=== PATIENT | female | born 1990 | race Caucasian/White ===

== ENCOUNTER 2016-08-13 11:25 | Emergency (ER) | payer OTHER ==
[2016-08-13] MEDS ORDERED: BUFFERED LIDOCAINE 10 ML SYRINGE ONE (12:50)
[2016-08-13] MEDS ORDERED: HYDROcod/ACETAM 5/325 MG TABLET PO STA (13:05)
[2016-08-13] MEDS ORDERED: HYDROcod/ACETAM 5/325 MG TABLET ONE (13:06)
== END 2016-08-13 13:18 | disposition home or self-care (01) ==
DX: L02.01 Cutaneous abscess of face (principal)
CPT/HCPCS: 10060; 87070; 87077; 87181; 87205; 99283; A9270

== ENCOUNTER 2018-09-24 08:00 | Outpatient (CLI) | payer OTHER | END 2018-09-24 23:59 | disposition home or self-care (01) | LOC: LAB.R 08:00 | PROVIDERS: ATTEND Physician Assistant | DX: J02.9 Acute pharyngitis, unspecified (principal) | CPT/HCPCS: 87070 ==